=== PATIENT | male | born 1970 | race Caucasian/White ===

== ENCOUNTER → 2017-06-08 | Outpatient (CLI) | payer BC ==
[2017-06-08 13:38] LABS: ALBUMIN 3.9 gm/dl (3.4-5.0); ALT/SGPT 83 U/L (12-78); BLOOD UREA NITROGEN 11 mg/dl (7-18); CALCIUM 8.7 mg/dl (8.5-10.1); CARBON DIOXIDE 30 mmol/L (21-32); CHOLESTEROL 185 mg/dl (0-200); CREATININE 0.92 mg/dl (0.60-1.40); GLUCOSE 196 mg/dl (70-99); SODIUM 136 mmol/L (136-145)
[2017-06-08 13:41] LABS: ALKALINE PHOSPHATASE 67 U/L (45-117); AST/SGOT 46 U/L (15-37); LDL CHOLESTEROL CALCULATED 107 mg/dl; TOTAL PROTEIN 7.6 gm/dl (6.4-8.2)
[2017-06-08 13:44] LABS: HEMOGLOBIN A1C 8.5 % (4.5-5.6)
== END | disposition home or self-care (01) ==
LOC: C.LABMFLN 08:48
PROVIDERS: ATTEND Family Medicine
DX: E11.9 Type 2 diabetes mellitus without complications (principal)